=== PATIENT | male | born 1950 | race Caucasian/White ===

== ENCOUNTER → 2018-08-06 | Outpatient (CLI) | payer OTHER, MEDICARE ==
[2013-03-24 19:54] VITALS: BP 133/86
[~2018-08-06] MED LIST: ALFUZOSIN HYDRO10 MG PO; AMOXICILLIN 50500 MG PO; CALCIUM 500 + D1 TA1 PO; CELLCEPT250 MG PO; CRESTOR 10MG10 MG PO; CYCLOSPORINE100 M1 PO; DEPO-TESTOS200 MG/M1 IM; DETROL 2MG TAB2 MG PO; DIABETA2.5 MG PO; DILTIAZEM CD120 MG PO; EFUDEX5% TP; EZETIMIBE10 MG PO; GOOD NEIGHBOR P81 MG PO; HCTZ/TRIAMTEREN1 TAB PO; HEALTH CARE AM PO; HYDROCODONE/APAP PO; HYDROXYZINE10 M1 PO; METFORMIN1000 MG PO; METFORMIN500 MG PO; OMEPRAZOLE DR20 MG PO; PREDNISONE 5MG5 MG PO; PROCHLORPERAZINE5 M1 PO; RANITIDINE150 MG PO; SARNA 0.5%-0.5222 ML TP; SENOKOT S 50 MG1 TAB PO; SEPTRA DS 8001 TAB PO; TERAZOSIN HCL5 MG PO; TESSALON P100 MG/CAP PO; UROXATRAL10 M1 PO; VIAGRA100 MG PO; WART REMOVER TP; ZOSTRIX TP; [UNRECOGNIZED DRUG - OTHER] MM; [UNRECOGNIZED DRUG - OTHER] PO; [UNRECOGNIZED DRUG - OTHER] PO; [UNRECOGNIZED DRUG - OTHER] TP
== END ==
LOC: LAB 12:30
DX: Z01.812 Encounter for preprocedural laboratory examination (principal); S06.5X1D Traumatic subdural hemorrhage with loss of consciousness of 30 minutes or less, subsequent encounter

== ENCOUNTER 2024-06-21 03:32 | Emergency (ER) | payer OTHER ==
[~2024-06-21] VITALS: Wt 75.0 kg
[2024-06-21] MEDS ORDERED: ROPINIROLE HY0.25 MG PO (04:18)
[2024-06-21] MEDS ORDERED: EZETIMIBE10 M1 (04:18)
[2024-06-21] MEDS ORDERED: BUMETANIDE2 M1 PO (04:18)
[2024-06-21] MEDS ORDERED: SODIUM FLUORIDE51 GM DT (04:18)
[2024-06-21] MEDS ORDERED: TERAZOSIN5 MG PO (04:19)
[2024-06-21] MEDS ORDERED: DULOXETINE30 MG PO (04:19)
[2024-06-21] MEDS ORDERED: METOPROLOL SUCC25 M1 PO (04:20)
[2024-06-21] MEDS ORDERED: PREDNISOLONE5 M1 PO (04:20)
[2024-06-21] MEDS ORDERED: POTASSIUM CHLO20 ME4 PO (04:21)
[2024-06-21] MEDS ORDERED: ROSUVASTATIN CA10 MG PO (04:21)
[2024-06-21] MEDS ORDERED: PRILOSEC 20MG20 MG PO (04:22)
[2024-06-21] MEDS ORDERED: ASPIRIN 81M81 MG/TA2 PO (04:31)
[2024-06-21] MEDS ORDERED: CYCLOSPORINE50 MG PO (04:31)
[2024-06-21] MEDS ORDERED: COLACE100 M1 PO (04:31)
[2024-06-21] MEDS ORDERED: MELATONINMAX10 MG PO (04:32)
[2024-06-21] MEDS ORDERED: TRULICITY0.75 MG/0. SC (04:32)
[2024-06-21] MEDS ORDERED: APRESOLINE 10MG10 MG PO (05:05)
[2024-06-21] MEDS ORDERED: SILDENAFIL CIT100 MG PO (05:05)
[2024-06-21] MEDS ORDERED: ISOSORBIDE30 MG PO (05:05)
[2024-06-21] MEDS ORDERED: LORazepam 0.5 MG TABLET PO ONE (06:00)
[2024-06-21 07:31] VITALS: BP 130/78
== END 2024-06-21 07:08 | disposition home or self-care (01) ==
LOC: ED 03:32
DX: S09.90XA Unspecified injury of head, initial encounter (principal); S61.411A Laceration without foreign body of right hand, initial encounter; S50.11XA Contusion of right forearm, initial encounter; S70.01XA Contusion of right hip, initial encounter; M25.561 Pain in right knee; Z98.890 Other specified postprocedural states; Z23 Encounter for immunization; W01.198A Fall on same level from slipping, tripping and stumbling with subsequent striking against other object, initial encounter
CPT/HCPCS: 90715

== ENCOUNTER 2024-08-07 19:58 | Emergency (ER) | payer OTHER ==
[~2024-08-07] VITALS: Wt 69.5 kg
[~2024-08-07 19:58] MED LIST changes: +APRESOLINE 10MG10 MG PO; +ASPIRIN 81M81 MG/TA2 PO; +BUMETANIDE2 M1 PO; +COLACE100 M1 PO; +CYCLOSPORINE50 MG PO; +DULOXETINE30 MG PO; +EZETIMIBE10 M1; +ISOSORBIDE30 MG PO; +MELATONINMAX10 MG PO; +METOPROLOL SUCC25 M1 PO; +POTASSIUM CHLO20 ME4 PO; +PREDNISOLONE5 M1 PO; +PRILOSEC 20MG20 MG PO; +ROPINIROLE HY0.25 MG PO; +ROSUVASTATIN CA10 MG PO; +SILDENAFIL CIT100 MG PO; +SODIUM FLUORIDE51 GM DT; +TERAZOSIN5 MG PO; +TRULICITY0.75 MG/0. SC
[2024-08-07] MEDS ORDERED: Lidocaine/EPINEPHrine/Tetracaine Topical Gel 3 ML SYRINGE TOP ONE (20:45)
[2024-08-07] MEDS ORDERED: Morphine 10 MG/ML VIAL IM ONE (20:45)
[2024-08-07] MEDS ORDERED: ZYLOPRIM100 MG PO (22:51)
[2024-08-07] MEDS ORDERED: ALKA-SELTZER PL25 MG PO (22:52)
[2024-08-07] MEDS ORDERED: TYLENOL 325MG325 MG PO (22:53)
[2024-08-08 00:08] LABS: BASO # 0.01 K/mm3 (0.02-0.10); EOS # 0.13 K/mm3 (0.04-0.40); EOS % 2.1 % (0.0-4.0); HEMATOCRIT 30.9 % (42.0-52.0); HEMOGLOBIN 10.1 g/dL (13.5-18.0); MEAN CELL VOLUME 97 fl (78-100); MEAN CORPUSCULAR HEMOGLOBIN 32 pg (27-31); MEAN CORPUSCULAR HGB CONC 33 g/dL (33-37); MONO # 0.48 K/mm3 (0.20-0.80); NEU # 4.36 K/mm3 (1.40-6.50); PLATELET COUNT 147 K/mm3 (130-400); RED BLOOD COUNT 3.18 M/mm3 (4.20-5.60); RED CELL DISTRIBUTION WIDTH 14.8 % (11.5-14.5); WHITE BLOOD COUNT 6.1 K/mm3 (4.8-10.8)
[2024-08-08 00:15] LABS: ALBUMIN 3.6 g/dL (3.4-4.8)
[2024-08-08 00:16] LABS: CALCIUM 8.9 mg/dL (8.3-10.5)
[2024-08-08 00:18] LABS: TOTAL PROTEIN 6.8 g/dL (6.2-8.1)
[2024-08-08 00:19] LABS: TOTAL BILIRUBIN 0.6 mg/dL (0.2-1.2)
[2024-08-08 00:56] VITALS: BP 149/91
== END 2024-08-08 00:56 | disposition short-term general hospital (02) ==
LOC: ED 19:58
PROVIDERS: Family Medicine
DX: S37.30XA Unspecified injury of urethra, initial encounter (principal); Z94.1 Heart transplant status; X58.XXXA Exposure to other specified factors, initial encounter
CPT/HCPCS: A4314; J2270